=== PATIENT | male | born 1990 | race African-American/Black ===

== ENCOUNTER 2019-12-16 14:43 | Emergency (ER) | payer MEDICAID ==
[~2019-12-16] VITALS: Ht 182.9 cm; Wt 88.0 kg
[2019-12-16 15:49] LABS: BASOPHILS % (AUTO) 0.9 % (0.0-2.0); EOSINOPHILS % (AUTO) 6.3 % (0.0-6.0); HEMATOCRIT 37 % (39-51); HEMOGLOBIN 12.5 g/dL (13.5-17.5); LYMPHOCYTES # (AUTO) 1.4 /CMM (0.8-4.8); LYMPHOCYTES % (AUTO) 36.6 % (20.0-44.0); MEAN CORPUSCULAR HGB CONC 34 g/dl (31.0-36.0); MEAN CORPUSCULAR VOLUME 92 fL (80-96); MONOCYTES # (AUTO) 0.3 /CMM (0.1-1.30); MONOCYTES % (AUTO) 8.6 % (2.0-12.0); NEUTROPHILS # (AUTO) 1.8 /CMM (1.8-8.9); NEUTROPHILS % (AUTO) 47.6 % (43.0-81.0); PLATELET COUNT (AUTO) 140 /CMM (150-450); RED BLOOD CELL COUNT(AUTO) 4.03 MIL/uL (4.5-6.0); WHITE BLOOD COUNT (AUTO) 3.9 K/uL (4.3-11.0)
[2019-12-16 15:57] LABS: CALCIUM, SERUM 8.9 mg/dL (8.5-10.1); CARBON DIOXIDE 27 mmol/L (21-32); CHLORIDE 107 mmol/L (98-107); CREATININE 1.2 mg/dL (0.6-1.3); GLUCOSE 111 mg/dL (74-106); POTASSIUM 3.8 mmol/L (3.5-5.1); SODIUM SERUM 143 mmol/L (136-145); UREA NITROGEN, BLOOD 17 mg/dL (7-18)
[2019-12-16 16:07] LABS: ALANINE AMINOTRANSFERASE 47 U/L (12-78); ALBUMIN 3.7 g/dL (3.4-5.0); ALCOHOL, BLOOD < 3 mg/dL (0-0); ALKALINE PHOSPHATASE 51 U/L (46-116); ASPARTATE AMINOTRANSFERASE 177 U/L (15-37); BILIRUBIN,DIRECT 0.1 mg/dL (0.0-0.2); BILIRUBIN,TOTAL 0.6 mg/dL (0.2-1.0)
[2019-12-16 16:10] LABS: ACETAMINOPHEN 0 ug/ml (10-30); SALICYLATE 2.2 mg/dL (2.8-20.0)
[2019-12-16 18:00] LABS: APPEARANCE,URINE Clear (CLEAR); BILIRUBIN,URINE Negative (NEGATIVE); BLOOD, URINE Negative Ery/uL (NEGATIVE); COLOR,URINE Yellow (YELLOW); KETONES,URINE Negative (NEGATIVE); LEUKOCYTE ESTERASE ,URINE Negative (NEGATIVE); NITRITE, URINE Negative (NEGATIVE); PH,URINE 5.5 (5.0-8.0); PROTEIN,URINE Negative (NEGATIVE); UGLUCOSE Negative (NEGATIVE); UROBILINOGEN,URINE 0.2 EU/dL (0.2)
--- NOTE | 2019-12-16 19:30 | NUR ---
ASSUMED CARE FOR PATIENT AT THIS TIME. PT CAME IN TO ER C/O SI AND FEELING DEPRESSED. PT PLACED IN ER BED 15, BELONGINGS COLLECTED AND PLACED IN GOWN. CLINICAL PACKET FAXED TO [facility]. CALLED [facility], PACKET STILL BEING REVIEWED. THEY WILL CALL BACK WITH ANY UPDATE. PT IS AAOX4, CALM AND COOPERATIVE. RESPIRATIONS EVEN AND UNLABORED. SKIN INTACT. NO ACUTE DISTRESS NOTED AT THIS TIME. SITTER AT BEDSIDE. WILL CONTINUE TO MONITOR.
--- NOTE | 2019-12-16 21:55 | NUR ---
accepted at [facility] number for report accepting md dr Parham Addendum: 12/16/19 at 2223 by REBEKAH PT ACCEPTED TO [facility]
--- NOTE | 2019-12-16 22:14 | NUR ---
CALLED [facility] FOR TRANSPORTATION. RESERVATION #[id number]. PENDING ETA
--- NOTE | 2019-12-16 23:08 | NUR ---
[facility] ETA 0046
--- NOTE | 2019-12-16 23:53 | NUR ---
ATTEMPTED TO GIVE REPORT TO [facility]. NO ANSWER. WILL FOLLOW UP
[2019-12-17 01:22] VITALS: BP 118/79
--- NOTE | 2019-12-17 01:24 | NUR ---
REPORT GIVEN TO SHAWANDA FROM [facility] FOR LAURYN
--- NOTE | 2019-12-17 01:25 | NUR ---
REPORT GIVEN TO [facility] FOR TRANSPORTATION LAURYN
== END 2019-12-17 01:25 | disposition short-term general hospital (02) ==
LOC: ER 14:49
DX: R45.851 Suicidal ideations (principal); F32.9 Major depressive disorder, single episode, unspecified; F41.9 Anxiety disorder, unspecified; F17.200 Nicotine dependence, unspecified, uncomplicated; Z59.0 Homelessness
CPT/HCPCS: 36415; 80048; 80076; 80305; 80307; 80329; 81001; 85025; 99285; G0480; 81000-TC

== ENCOUNTER 2020-06-05 01:22 | Emergency (ER) | payer MEDICAID ==
[~2020-06-05] VITALS: Ht 177.8 cm; Wt 74.8 kg
[2020-06-05 01:22] VITALS: BP 124/75
[2020-06-05] MEDS ORDERED: OLANZAPINE 5 MG/TAB.RAPDIS PO ONE ×2 (01:30)
--- NOTE | 2020-06-05 01:32 | NUR ---
PATIENT CAME TO ER BED 13 C/O AUDITORY HALLUCINATIONS. PATIENT STATES THAT THE VOICES DON'T MAKE ANY SENSE. PATIENT DENIES SI/HI. PATIENT STATES THAT HE WANTS THE VOICE TO STOP. AAOX4. NO SOB. BREATHING EVENLY AND UNLABORED ON ROOM AIR. CONNECTED TO MONITOR. CLOTHING AND BELONGING ARE REMOVED AND PLACED INTO A LOCKED LOCKER. PATIENT IS CHANGED INTO A GOWN.
[2020-06-05] MEDS ORDERED: OLANZAPINE 5 MG TABLET ONE (01:34)
--- NOTE | 2020-06-05 01:36 | NUR ---
SANFORIZING MACHINE OPERATOR AT BEDSIDE FOR BLOOD DRAW.
--- NOTE | 2020-06-05 01:55 | NUR ---
URINE COLLECTED AND SENT TO LAB.
[2020-06-05 02:02] LABS: BASOPHILS # (AUTO) 0.1 /CMM (0.0-0.2); BASOPHILS % (AUTO) 1.3 % (0.0-2.0); EOSINOPHILS % (AUTO) 8.8 % (0.0-6.0); HEMATOCRIT 38 % (39-51); HEMOGLOBIN 12.7 g/dL (13.5-17.5); LYMPHOCYTES # (AUTO) 2.1 /CMM (0.8-4.8); LYMPHOCYTES % (AUTO) 40.4 % (20.0-44.0); MEAN CORPUSCULAR HGB CONC 33 g/dl (31.0-36.0); MEAN CORPUSCULAR VOLUME 91 fL (80-96); MONOCYTES # (AUTO) 0.4 /CMM (0.1-1.30); MONOCYTES % (AUTO) 8.7 % (2.0-12.0); NEUTROPHILS # (AUTO) 2.1 /CMM (1.8-8.9); NEUTROPHILS % (AUTO) 40.8 % (43.0-81.0); PLATELET COUNT (AUTO) 183 /CMM (150-450); RED BLOOD CELL COUNT(AUTO) 4.19 MIL/uL (4.5-6.0); WHITE BLOOD COUNT (AUTO) 5.1 K/uL (4.3-11.0)
[2020-06-05 02:10] LABS: APPEARANCE,URINE CLEAR (CLEAR); BILIRUBIN,URINE NEGATIVE (NEGATIVE); BLOOD, URINE NEGATIVE Ery/uL (NEGATIVE); COLOR,URINE YELLOW (YELLOW); KETONES,URINE NEGATIVE (NEGATIVE); LEUKOCYTE ESTERASE ,URINE NEGATIVE (NEGATIVE); NITRITE, URINE NEGATIVE (NEGATIVE); PROTEIN,URINE NEGATIVE (NEGATIVE); UGLUCOSE NEGATIVE (NEGATIVE); UROBILINOGEN,URINE 0.2 EU/dL (0.2)
[2020-06-05 02:14] LABS: BILIRUBIN,DIRECT 0.1 mg/dL (0.0-0.2); BILIRUBIN,TOTAL 0.2 mg/dL (0.2-1.0); CALCIUM, SERUM 8.9 mg/dL (8.5-10.1); CREATININE 1.3 mg/dL (0.6-1.3); POTASSIUM 3.8 mmol/L (3.5-5.1); TOTAL PROTEIN, SERUM 7.8 g/dL (6.4-8.2)
--- NOTE | 2020-06-05 06:23 | NUR ---
PATIENT RETURNED BELONGINGS AND PROVIDED WITH FOOD.
--- NOTE | 2020-06-05 06:33 | NUR ---
Patient discharged to home in stable condition. Written and verbal after care instructions given. Patient verbalizes understanding of instruction.
== END 2020-06-05 06:45 | disposition home or self-care (01) ==
LOC: ER 01:23
DX: F29 Unspecified psychosis not due to a substance or known physiological condition (principal); F32.9 Major depressive disorder, single episode, unspecified; F41.9 Anxiety disorder, unspecified
CPT/HCPCS: 36415; 80048; 80076; 80305; 80307; 80329; 81001; 85025; 99284; G0480; 81000-TC

== ENCOUNTER 2020-10-29 21:08 | Emergency (ER) | payer MEDICAID ==
[~2020-10-29] VITALS: Ht 185.4 cm; Wt 79.4 kg
--- NOTE | 2020-10-29 21:59 | NUR ---
URINE COLLECTED AND SENT TO LAB
--- NOTE | 2020-10-29 22:25 | NUR ---
lab with pt for blood draw.
[2020-10-29 22:42] LABS: BASOPHILS # (AUTO) 0.1 /CMM (0.0-0.2); BASOPHILS % (AUTO) 0.9 % (0.0-2.0); EOSINOPHILS % (AUTO) 4.7 % (0.0-6.0); HEMATOCRIT 43 % (39-51); HEMOGLOBIN 14.8 g/dL (13.5-17.5); LYMPHOCYTES # (AUTO) 2.4 /CMM (0.8-4.8); LYMPHOCYTES % (AUTO) 41.2 % (20.0-44.0); MEAN CORPUSCULAR HGB CONC 34 g/dl (31.0-36.0); MEAN CORPUSCULAR VOLUME 92 fL (80-96); MONOCYTES # (AUTO) 0.5 /CMM (0.1-1.30); MONOCYTES % (AUTO) 8.1 % (2.0-12.0); NEUTROPHILS # (AUTO) 2.6 /CMM (1.8-8.9); NEUTROPHILS % (AUTO) 45.1 % (43.0-81.0); PLATELET COUNT (AUTO) 193 /CMM (150-450); RED BLOOD CELL COUNT(AUTO) 4.69 MIL/uL (4.5-6.0); WHITE BLOOD COUNT (AUTO) 5.8 K/uL (4.3-11.0)
[2020-10-29 22:44] LABS: BILIRUBIN,URINE NEGATIVE (NEGATIVE); COLOR,URINE YELLOW (YELLOW); LEUKOCYTE ESTERASE ,URINE NEGATIVE (NEGATIVE); NITRITE, URINE NEGATIVE (NEGATIVE); PROTEIN,URINE NEGATIVE (NEGATIVE); UGLUCOSE NEGATIVE (NEGATIVE); UROBILINOGEN,URINE 0.2 EU/dL (0.2)
[2020-10-29 22:54] LABS: CALCIUM, SERUM 9.7 mg/dL (8.5-10.1); CARBON DIOXIDE 31 mmol/L (21-32); CHLORIDE 103 mmol/L (98-107); CREATININE 1.6 mg/dL (0.6-1.3); GLUCOSE 96 mg/dL (74-106); POTASSIUM 4.6 mmol/L (3.5-5.1); SODIUM SERUM 140 mmol/L (136-145); UREA NITROGEN, BLOOD 26 mg/dL (7-18)
[2020-10-29 23:02] LABS: ALANINE AMINOTRANSFERASE 16 U/L (12-78); ALBUMIN 4.4 g/dL (3.4-5.0); ALCOHOL, BLOOD < 3 mg/dL (0-0); ALKALINE PHOSPHATASE 63 U/L (46-116); ASPARTATE AMINOTRANSFERASE 32 U/L (15-37); BILIRUBIN,DIRECT 0.1 mg/dL (0.0-0.2); BILIRUBIN,TOTAL 0.5 mg/dL (0.2-1.0); TOTAL PROTEIN, SERUM 8.5 g/dL (6.4-8.2)
[2020-10-29 23:05] LABS: ACETAMINOPHEN 0 ug/ml (10-30)
--- NOTE | 2020-10-30 02:39 | NUR ---
TRANSFER INFORMATION:PT ACCEPTED TO [facility] ACCEPTING MD: DR. LEE NUMBER FOR REPORT: [phone] UNIT 2
--- NOTE | 2020-10-30 02:43 | NUR ---
CALLED [facility] FOR TRANSPORTATION. RESERVATION [id number], WILL CALL BACK WITH JASSI
--- NOTE | 2020-10-30 02:47 | NUR ---
REPORT GIVEN TO KATIANA FOUNTAIN FOR LAURYN [facility]
--- NOTE | 2020-10-30 03:35 | NUR ---
Minna carmona in [facility] - 10/30/20 at 0335 by CARLOZ ETA 30MINS
--- NOTE | 2020-10-30 03:35 | NUR ---
ETA 30MINS
[2020-10-30 04:22] VITALS: BP 138/79
== END 2020-10-30 04:23 | disposition short-term general hospital (02) ==
LOC: ER 21:10
DX: R45.850 Homicidal ideations (principal); F20.9 Schizophrenia, unspecified; Z20.822 Contact with and (suspected) exposure to COVID-19; N17.9 Acute kidney failure, unspecified
CPT/HCPCS: 36415; 80048; 80076; 80299; 80307; 80320; 81003; 85025; 87426; 99285; C9803; G0480

== ENCOUNTER 2020-11-12 21:12 | Emergency (ER) | payer MEDICAID ==
[~2020-11-12] VITALS: Ht 185.4 cm; Wt 79.4 kg
--- NOTE | 2020-11-12 21:37 | NUR ---
ADMINISTRATIVE RESIDENT DRAWING BLOOD FROM PATIENT.
--- NOTE | 2020-11-12 21:39 | NUR ---
URINE COLLECTED AND SENT TO THE LAB.
--- NOTE | 2020-11-12 21:47 | NUR ---
VALERIE AQUINO AT BEDSIDE.
[2020-11-12 21:56] LABS: BASOPHILS # (AUTO) 0.1 /CMM (0.0-0.2); BASOPHILS % (AUTO) 1.3 % (0.0-2.0); EOSINOPHILS % (AUTO) 4.8 % (0.0-6.0); HEMATOCRIT 40 % (39-51); LYMPHOCYTES # (AUTO) 2.1 /CMM (0.8-4.8); LYMPHOCYTES % (AUTO) 35.8 % (20.0-44.0); MEAN CORPUSCULAR HGB CONC 35 g/dl (31.0-36.0); MEAN CORPUSCULAR VOLUME 93 fL (80-96); MONOCYTES # (AUTO) 0.4 /CMM (0.1-1.30); MONOCYTES % (AUTO) 6.2 % (2.0-12.0); NEUTROPHILS # (AUTO) 3.1 /CMM (1.8-8.9); NEUTROPHILS % (AUTO) 51.9 % (43.0-81.0); PLATELET COUNT (AUTO) 184 /CMM (150-450); RED BLOOD CELL COUNT(AUTO) 4.34 MIL/uL (4.5-6.0); WHITE BLOOD COUNT (AUTO) 5.9 K/uL (4.3-11.0)
[2020-11-12 22:29] LABS: ALANINE AMINOTRANSFERASE 16 U/L (12-78); ALBUMIN 4.1 g/dL (3.4-5.0); ALCOHOL, BLOOD 11 mg/dL (0-0); ALKALINE PHOSPHATASE 56 U/L (46-116); ASPARTATE AMINOTRANSFERASE 30 U/L (15-37); BILIRUBIN,DIRECT 0.1 mg/dL (0.0-0.2); BILIRUBIN,TOTAL 0.3 mg/dL (0.2-1.0); CALCIUM, SERUM 9.3 mg/dL (8.5-10.1); CARBON DIOXIDE 31 mmol/L (21-32); CHLORIDE 106 mmol/L (98-107); CREATININE 1.2 mg/dL (0.6-1.3); GLUCOSE 90 mg/dL (74-106); POTASSIUM 4.2 mmol/L (3.5-5.1); SODIUM SERUM 144 mmol/L (136-145); UREA NITROGEN, BLOOD 16 mg/dL (7-18)
[2020-11-12 22:30] LABS: ACETAMINOPHEN < 10 ug/ml (10-30)
[2020-11-12 22:36] LABS: BILIRUBIN,URINE NEGATIVE (NEGATIVE); COLOR,URINE YELLOW (YELLOW); LEUKOCYTE ESTERASE ,URINE NEGATIVE (NEGATIVE); NITRITE, URINE NEGATIVE (NEGATIVE); PH,URINE 7.5 (5.0-8.0); PROTEIN,URINE NEGATIVE (NEGATIVE); UGLUCOSE NEGATIVE (NEGATIVE); UROBILINOGEN,URINE 0.2 EU/dL (0.2)
--- NOTE | 2020-11-12 22:39 | NUR ---
COVID SWAB COLLECTED AND SENT TO THE LAB
--- NOTE | 2020-11-12 23:21 | NUR ---
FACESHEET AND CLINICAL FAXED TO [facility] FOR VOLUNTARY ADMISSION.
--- NOTE | 2020-11-13 00:11 | NUR ---
covid negative per lab
--- NOTE | 2020-11-13 00:15 | NUR ---
covid results faxed to [facility]
--- NOTE | 2020-11-13 00:42 | NUR ---
called [facility]. [facility] #[id number] eta transport 1-3 hrs.
--- NOTE | 2020-11-13 00:50 | NUR ---
TRANSFER INFO: [facility] ACCEPTING MD BELCHER/SHONDA PHONE # FOR REPORT
--- NOTE | 2020-11-13 00:53 | NUR ---
REPORT GIVEN TO KATIANA FOUNTAIN FOR [facility]
--- NOTE | 2020-11-13 04:55 | NUR ---
CALLED [facility], SPOKE TO PAT FOR F/U ETA FOR TRANSPORT[phone] WILL CALL BACK FOR ETA.
--- NOTE | 2020-11-13 05:37 | NUR ---
SPOKE TO DEVON FROM [facility] FOR UPDATE, STILL LOOKING FOR TRANSPORT.
--- NOTE | 2020-11-13 05:40 | NUR ---
SPOKE TO LUCIA FROM [facility] FOR ETA. STILL LOOKING FOR TRANSPORT
--- NOTE | 2020-11-13 05:41 | NUR ---
CALLED [facility] [phone]; SPOKE TO ASIF KEENE [phone].
--- NOTE | 2020-11-13 07:41 | NUR ---
REPORT GIVEN TO [facility]. PT AWARE OF TRANSPORT. PT WITH ALL PERSONAL BELONGINGS. PER [facility] TOOK OVER CARE, PT PLACED ON GURNEY, PT TO BE TRANSFERRED TO [facility]. PT VSS.
[2020-11-13 07:43] VITALS: BP 132/78
== END 2020-11-13 07:46 ==
LOC: ER 21:12
DX: F20.9 Schizophrenia, unspecified (principal); F41.9 Anxiety disorder, unspecified; Z91.14 Patient's other noncompliance with medication regimen; Z20.822 Contact with and (suspected) exposure to COVID-19
CPT/HCPCS: 36415; 80048; 80076; 80299; 80307; 80320; 81003; 85025; 87426; 99285; C9803; G0480

== ENCOUNTER 2020-11-20 01:07 | Emergency (ER) | payer MEDICAID ==
[~2020-11-20] VITALS: Ht 182.9 cm; Wt 79.4 kg
--- NOTE | 2020-11-20 01:30 | NUR ---
SAMARIA C/O FEELING DEPRESSED, -SI/-HI. REQUEST TO GO TO [facility]. pt aox4 rr even and unlabored. no sob noted. no acute distress noted. pt aware of plan of care. pt calm and cooperative. dr. lai with pt for eval.
--- NOTE | 2020-11-20 01:34 | NUR ---
URINE COLLECTED. SENT TO LAB
--- NOTE | 2020-11-20 01:40 | NUR ---
lab with pt for blood draw
[2020-11-20 01:49] LABS: BASOPHILS % (AUTO) 0.6 % (0.0-2.0); EOSINOPHILS % (AUTO) 5.5 % (0.0-6.0); HEMATOCRIT 38 % (39-51); HEMOGLOBIN 13.2 g/dL (13.5-17.5); LYMPHOCYTES # (AUTO) 1.7 /CMM (0.8-4.8); LYMPHOCYTES % (AUTO) 36.4 % (20.0-44.0); MEAN CORPUSCULAR HGB CONC 34 g/dl (31.0-36.0); MEAN CORPUSCULAR VOLUME 92 fL (80-96); MONOCYTES # (AUTO) 0.4 /CMM (0.1-1.30); MONOCYTES % (AUTO) 8.4 % (2.0-12.0); NEUTROPHILS # (AUTO) 2.3 /CMM (1.8-8.9); NEUTROPHILS % (AUTO) 49.1 % (43.0-81.0); PLATELET COUNT (AUTO) 180 /CMM (150-450); RED BLOOD CELL COUNT(AUTO) 4.15 MIL/uL (4.5-6.0); WHITE BLOOD COUNT (AUTO) 4.7 K/uL (4.3-11.0)
[2020-11-20 01:55] LABS: BILIRUBIN,URINE NEGATIVE (NEGATIVE); COLOR,URINE YELLOW (YELLOW); LEUKOCYTE ESTERASE ,URINE NEGATIVE (NEGATIVE); NITRITE, URINE NEGATIVE (NEGATIVE); PROTEIN,URINE NEGATIVE (NEGATIVE); UGLUCOSE NEGATIVE (NEGATIVE); UROBILINOGEN,URINE 0.2 EU/dL (0.2)
[2020-11-20 02:03] LABS: CALCIUM, SERUM 9.2 mg/dL (8.5-10.1); CARBON DIOXIDE 31 mmol/L (21-32); CHLORIDE 106 mmol/L (98-107); CREATININE 1.3 mg/dL (0.6-1.3); GLUCOSE 82 mg/dL (74-106); POTASSIUM 4.4 mmol/L (3.5-5.1); SODIUM SERUM 144 mmol/L (136-145); UREA NITROGEN, BLOOD 12 mg/dL (7-18)
[2020-11-20 02:07] LABS: ALANINE AMINOTRANSFERASE 19 U/L (12-78); ALBUMIN 3.9 g/dL (3.4-5.0); ALCOHOL, BLOOD 32 mg/dL (0-0); ALKALINE PHOSPHATASE 68 U/L (46-116); ASPARTATE AMINOTRANSFERASE 36 U/L (15-37); BILIRUBIN,DIRECT 0.1 mg/dL (0.0-0.2); BILIRUBIN,TOTAL 0.2 mg/dL (0.2-1.0); TOTAL PROTEIN, SERUM 7.5 g/dL (6.4-8.2)
[2020-11-20 02:12] LABS: ACETAMINOPHEN < 2 ug/ml (10-30)
[2020-11-20 02:15] LABS: THYROID STIMULATING HORMONE 3.404 uIU/mL (0.358-3.74)
--- NOTE | 2020-11-20 03:55 | NUR ---
CLINICAL INFORMATION FAXED TO [facility]
--- NOTE | 2020-11-20 04:34 | NUR ---
Pt accepted to [facility] by Dr Smith. # for report. [phone]
--- NOTE | 2020-11-20 04:43 | NUR ---
[facility] transportation called for transport. #[id number]
--- NOTE | 2020-11-20 04:59 | NUR ---
Report given to Richard SAAB for continuation of care.
--- NOTE | 2020-11-20 05:50 | NUR ---
[facility] ETA [id number]
[2020-11-20 05:53] VITALS: BP 112/72
--- NOTE | 2020-11-20 07:31 | NUR ---
report given to KATIANA Blackmon.
--- NOTE | 2020-11-20 07:44 | NUR ---
[facility] ambulance at bedside for transport to [facility].
== END 2020-11-20 07:46 ==
LOC: ER 01:09
DX: F29 Unspecified psychosis not due to a substance or known physiological condition (principal); F20.9 Schizophrenia, unspecified; Z79.899 Other long term (current) drug therapy; F17.210 Nicotine dependence, cigarettes, uncomplicated; Z20.822 Contact with and (suspected) exposure to COVID-19; Z59.0 Homelessness
CPT/HCPCS: 36415; 80048; 80076; 80299; 80307; 80320; 81003; 84443; 85025; 87426; 99285; C9803; G0480

== ENCOUNTER 2020-12-19 00:06 | Emergency (ER) | payer MEDICAID, OTHER ==
[~2020-12-19] VITALS: Ht 182.9 cm; Wt 79.4 kg
--- NOTE | 2020-12-19 00:10 | NUR ---
TO ER BED C/O DEPRESSION "I'M FEELING A HAGEN OF EMOTIONS". SI WITHOUT SPECIFIC PLAN. DENIES HI. REQUESTING VOLUNTARY PSYCH ADMISSION TO [facility]. PT AAOX4 NO ACUTE DISTRESS NOTED, RESP EVEN AND UNLABORED. PT CALM AND COOPERATIVE AT THIS TIME. PLACE PT ON HOSPITAL GOWN, ALL BELONGINGS REMOVED. 1:1 SITTER AT BEDSIDE. ER MD AT [facility] TO EVAL PT WITH ORDERS RECEIVED. WILL CARRY OUT ORDERS.
--- NOTE | 2020-12-19 00:30 | NUR ---
URINE SAMPLE COLLECTED AND SENT TO LAB.
--- NOTE | 2020-12-19 00:51 | NUR ---
MEDICAL TRANSCRIPTION RADIOLOGY AT BEDSIDE FOR BLOOD DRAW.
[2020-12-19 01:27] LABS: BASOPHILS # (AUTO) 0.1 /CMM (0.0-0.2); BASOPHILS % (AUTO) 0.8 % (0.0-2.0); EOSINOPHILS % (AUTO) 2.4 % (0.0-6.0); HEMATOCRIT 41 % (39-51); HEMOGLOBIN 13.7 g/dL (13.5-17.5); LYMPHOCYTES # (AUTO) 1.7 /CMM (0.8-4.8); LYMPHOCYTES % (AUTO) 21.5 % (20.0-44.0); MEAN CORPUSCULAR HGB CONC 34 g/dl (31.0-36.0); MEAN CORPUSCULAR VOLUME 93 fL (80-96); MONOCYTES # (AUTO) 0.5 /CMM (0.1-1.30); MONOCYTES % (AUTO) 6.4 % (2.0-12.0); NEUTROPHILS # (AUTO) 5.5 /CMM (1.8-8.9); NEUTROPHILS % (AUTO) 68.9 % (43.0-81.0); PLATELET COUNT (AUTO) 239 /CMM (150-450); RED BLOOD CELL COUNT(AUTO) 4.36 MIL/uL (4.5-6.0)
[2020-12-19 01:29] LABS: BILIRUBIN,URINE NEGATIVE (NEGATIVE); COLOR,URINE YELLOW (YELLOW); LEUKOCYTE ESTERASE ,URINE NEGATIVE (NEGATIVE); NITRITE, URINE NEGATIVE (NEGATIVE); PH,URINE 6.5 (5.0-8.0); PROTEIN,URINE NEGATIVE (NEGATIVE); UGLUCOSE NEGATIVE (NEGATIVE)
[2020-12-19 01:32] LABS: BACTERIA,URINE None seen /HPF (None Seen); RBC,URINE 0-2 /HPF (0-2); SQUAMOUS EPITHELIAL CELL,UR Few /HPF (None Seen); WBC,URINE 0-2 /HPF (0-3)
[2020-12-19 01:33] LABS: ALANINE AMINOTRANSFERASE 16 U/L (12-78); ALBUMIN 3.9 g/dL (3.4-5.0); ALCOHOL, BLOOD < 3 mg/dL (0-0); ALKALINE PHOSPHATASE 72 U/L (46-116); ASPARTATE AMINOTRANSFERASE 35 U/L (15-37); BILIRUBIN,DIRECT 0.1 mg/dL (0.0-0.2); BILIRUBIN,TOTAL 0.4 mg/dL (0.2-1.0); CALCIUM, SERUM 9.2 mg/dL (8.5-10.1); CARBON DIOXIDE 29 mmol/L (21-32); CHLORIDE 103 mmol/L (98-107); CREATININE 1.4 mg/dL (0.6-1.3); GLUCOSE 89 mg/dL (74-106); POTASSIUM 4.4 mmol/L (3.5-5.1); SODIUM SERUM 139 mmol/L (136-145); TOTAL PROTEIN, SERUM 8.2 g/dL (6.4-8.2); UREA NITROGEN, BLOOD 21 mg/dL (7-18)
[2020-12-19 01:57] LABS: ACETAMINOPHEN 0 ug/ml (10-30)
--- NOTE | 2020-12-19 02:04 | NUR ---
CLINICAL AND FACESHEET FAXED TO [facility] FOR VOLUNTARY PSYCH ADMISSION.
--- NOTE | 2020-12-19 03:15 | NUR ---
TRANSFER INFO: PT ACCEPTED AT [facility] ACCEPTING MD LEE PT WILL GO TO UNIT 2 PHONE # FOR REPORT
--- NOTE | 2020-12-19 03:41 | NUR ---
[facility] CALLED FOR TRANSPORT. TRIP #[id number].
--- NOTE | 2020-12-19 04:00 | NUR ---
Call back from [facility]. [facility]ulance eta [phone]
--- NOTE | 2020-12-19 06:47 | NUR ---
REPORT GIVEN TO LAVELLE RAYO. AWAITING TRANSPORT. PT ASLEEP, EASILY AROUSABLE, NO ACUTE DISTRESS NOTED, RESP EVEN AND UNLABORED. CALL [facility] REACH. WILL CONTINUE TO MONITOR PT CLOSELY.
[2020-12-19 08:02] VITALS: BP 134/82
--- NOTE | 2020-12-19 08:02 | NUR ---
Transfer Information: Transfer to: [place] [facility] Report To: EMT [facility] #[id number] Condition: Stable, AAOx3. GCS-15. Aware and concurs w/transfer
== END 2020-12-19 08:46 ==
LOC: ER 00:09
DX: F32.9 Major depressive disorder, single episode, unspecified (principal); R45.851 Suicidal ideations; F20.9 Schizophrenia, unspecified; Z20.822 Contact with and (suspected) exposure to COVID-19
CPT/HCPCS: 36415; 80048; 80076; 80299; 80307; 80320; 81001; 85025; 87426; 99285; C9803; G0480

== ENCOUNTER 2020-12-28 23:22 | Emergency (ER) | payer OTHER ==
[~2020-12-28] VITALS: Ht 188 cm; Wt 79.4 kg
--- NOTE | 2020-12-28 23:32 | NUR ---
[facility] FOR C/O DEPRESSION, SI AND PLANNING TO CUT HIS WRIST. PT ALERT, OX4, CALM AND COOPERATIVE. AMBULATORY TO THE BATHROOM WITH STEADY GAITS, ABLE TO PROVIDE URINE SAMPLE. ON MONITOR WITH STABLE VS. PT REMAINED ON SI PRECAUTION. WILL CONT TO MONITOR.
--- NOTE | 2020-12-28 23:48 | NUR ---
urine sent to lab.
[2020-12-28 23:55] LABS: BASOPHILS % (AUTO) 0.5 % (0.0-2.0); EOSINOPHILS % (AUTO) 2.2 % (0.0-6.0); HEMATOCRIT 39 % (39-51); HEMOGLOBIN 13.3 g/dL (13.5-17.5); LYMPHOCYTES # (AUTO) 1.9 /CMM (0.8-4.8); LYMPHOCYTES % (AUTO) 26.9 % (20.0-44.0); MEAN CORPUSCULAR HGB CONC 34 g/dl (31.0-36.0); MEAN CORPUSCULAR VOLUME 93 fL (80-96); MONOCYTES # (AUTO) 0.5 /CMM (0.1-1.30); MONOCYTES % (AUTO) 7.8 % (2.0-12.0); NEUTROPHILS # (AUTO) 4.4 /CMM (1.8-8.9); NEUTROPHILS % (AUTO) 62.6 % (43.0-81.0); PLATELET COUNT (AUTO) 239 /CMM (150-450); RED BLOOD CELL COUNT(AUTO) 4.21 MIL/uL (4.5-6.0)
[2020-12-28 23:56] LABS: BILIRUBIN,URINE NEGATIVE (NEGATIVE); COLOR,URINE YELLOW (YELLOW); LEUKOCYTE ESTERASE ,URINE NEGATIVE (NEGATIVE); NITRITE, URINE NEGATIVE (NEGATIVE); PROTEIN,URINE NEGATIVE (NEGATIVE); UGLUCOSE NEGATIVE (NEGATIVE); UROBILINOGEN,URINE 0.2 EU/dL (0.2)
[2020-12-29 00:04] LABS: CALCIUM, SERUM 9.4 mg/dL (8.5-10.1); CARBON DIOXIDE 33 mmol/L (21-32); CHLORIDE 105 mmol/L (98-107); CREATININE 1.3 mg/dL (0.6-1.3); GLUCOSE 108 mg/dL (74-106); POTASSIUM 4.3 mmol/L (3.5-5.1); SODIUM SERUM 141 mmol/L (136-145); UREA NITROGEN, BLOOD 19 mg/dL (7-18)
[2020-12-29 00:09] LABS: ALANINE AMINOTRANSFERASE 14 U/L (12-78); ALBUMIN 3.8 g/dL (3.4-5.0); ALCOHOL, BLOOD < 3 mg/dL (0-0); ALKALINE PHOSPHATASE 69 U/L (46-116); ASPARTATE AMINOTRANSFERASE 30 U/L (15-37); BILIRUBIN,DIRECT 0.1 mg/dL (0.0-0.2); BILIRUBIN,TOTAL 0.3 mg/dL (0.2-1.0); TOTAL PROTEIN, SERUM 8.3 g/dL (6.4-8.2)
[2020-12-29 00:11] LABS: ACETAMINOPHEN 0 ug/ml (10-30)
--- NOTE | 2020-12-29 01:47 | NUR ---
CLINICAL AND FACESHEET FAXED TO [facility] FOR VOLUNTARY PSYCH ADMISSION.
--- NOTE | 2020-12-29 03:12 | NUR ---
ACCEPTED TO [facility], UNDER PSYCHIATRIST: DR. BONY MCKEON: NICOLE WILL PROVIDE ROOM NUMBER UPON GIVING REPORT. #FOR REPORT: [phone]
--- NOTE | 2020-12-29 06:04 | NUR ---
CALLED [facility] AND SPOKE TO DENAE. TRANSPORTATION ARRANGED FOR [facility] AT 1000 WITH TRIP NUMBER: [id number]
--- NOTE | 2020-12-29 08:19 | NUR ---
# FOR REPORT, , UNIT 2
[2020-12-29 09:50] VITALS: BP 121/70
--- NOTE | 2020-12-29 11:09 | NUR ---
PT NO LONGER AT BEDSIDE. LEFT BEFORE BEING TRANSFER.
== END 2020-12-29 11:14 | disposition left against medical advice (07) ==
LOC: ER 23:24
DX: R45.851 Suicidal ideations (principal); F32.9 Major depressive disorder, single episode, unspecified; Z20.822 Contact with and (suspected) exposure to COVID-19; F20.9 Schizophrenia, unspecified; F41.9 Anxiety disorder, unspecified
CPT/HCPCS: 36415; 80048; 80076; 80299; 80307; 80320; 81003; 85025; 87426; 99285; C9803; G0480

== ENCOUNTER 2020-12-30 23:16 | Emergency (ER) | payer OTHER ==
[~2020-12-30] VITALS: Ht 188 cm; Wt 79.4 kg
--- NOTE | 2020-12-30 23:20 | NUR ---
TO ER BED C/O SI WITH PLAN TO RUN INTO A MOVING CAR. DENIES HI. REQUESTING VOLUNTARY ADMISSION TO [facility]. PT AAOX4 NO ACUTE DISTRESS NOTED, RESP EVEN AND UNLABORED. PT CALM AND COOPERATIVE AT THIS TIME. PLACE PT ON HOSPITAL GOWN, ALL BELONGINGS REMOVED, 1:1 SITTER AT BEDSIDE TO PT SAFETY.
--- NOTE | 2020-12-31 | NUR ---
URINE SAMPLE COLLECTED AND SENT TO LAB.
--- NOTE | 2020-12-31 00:19 | NUR ---
LEISURE TRAVEL AGENT AT BEDSIDE FOR BLOOD DRAW.
[2020-12-31 00:22] LABS: BASOPHILS % (AUTO) 0.6 % (0.0-2.0); EOSINOPHILS % (AUTO) 2.5 % (0.0-6.0); HEMATOCRIT 39 % (39-51); HEMOGLOBIN 13.3 g/dL (13.5-17.5); LYMPHOCYTES # (AUTO) 1.8 /CMM (0.8-4.8); LYMPHOCYTES % (AUTO) 27.8 % (20.0-44.0); MEAN CORPUSCULAR HGB CONC 34 g/dl (31.0-36.0); MEAN CORPUSCULAR VOLUME 93 fL (80-96); MONOCYTES # (AUTO) 0.6 /CMM (0.1-1.30); MONOCYTES % (AUTO) 8.9 % (2.0-12.0); NEUTROPHILS % (AUTO) 60.2 % (43.0-81.0); PLATELET COUNT (AUTO) 237 /CMM (150-450); RED BLOOD CELL COUNT(AUTO) 4.19 MIL/uL (4.5-6.0); WHITE BLOOD COUNT (AUTO) 6.6 K/uL (4.3-11.0)
[2020-12-31 00:52] LABS: ALBUMIN 3.7 g/dL (3.4-5.0); BILIRUBIN,DIRECT 0.1 mg/dL (0.0-0.2); BILIRUBIN,TOTAL 0.3 mg/dL (0.2-1.0); CALCIUM, SERUM 9.3 mg/dL (8.5-10.1); CREATININE 1.3 mg/dL (0.6-1.3); POTASSIUM 4.4 mmol/L (3.5-5.1); TOTAL PROTEIN, SERUM 8.2 g/dL (6.4-8.2)
[2020-12-31 01:01] LABS: BILIRUBIN,URINE NEGATIVE (NEGATIVE); COLOR,URINE YELLOW (YELLOW); LEUKOCYTE ESTERASE ,URINE NEGATIVE (NEGATIVE); NITRITE, URINE NEGATIVE (NEGATIVE); PH,URINE 6.5 (5.0-8.0); PROTEIN,URINE NEGATIVE (NEGATIVE); UGLUCOSE NEGATIVE (NEGATIVE); UROBILINOGEN,URINE 0.2 EU/dL (0.2)
--- NOTE | 2020-12-31 01:37 | NUR ---
negative covid result
--- NOTE | 2020-12-31 01:40 | NUR ---
Facesheet and clinicals faxed to [facility].
--- NOTE | 2020-12-31 02:14 | NUR ---
TRANSFER INFORMATION: PT WILL BE TRANSFERRED TO [facility] ACCEPTING MD: DR. LEE NUMBER FOR REPORT: [phone] UNIT 2
--- NOTE | 2020-12-31 03:00 | NUR ---
[place] [id number]. PER JOHANNA FROM [facility].
--- NOTE | 2020-12-31 03:27 | NUR ---
[facility] CALLED REGARDING KAMERON KEENE [phone].
[2020-12-31 04:02] VITALS: BP 126/76
--- NOTE | 2020-12-31 04:03 | NUR ---
REPORT GIVEN TO LAVELLE HARRY. AWAITING TRANSPORT.
--- NOTE | 2020-12-31 04:43 | NUR ---
TRANSPORT AT BEDSIDE REPORT GIVEN TO EMT
== END 2020-12-31 04:44 ==
LOC: ER 23:18
DX: R45.851 Suicidal ideations (principal); Z20.822 Contact with and (suspected) exposure to COVID-19; F20.9 Schizophrenia, unspecified; Z59.0 Homelessness; F32.9 Major depressive disorder, single episode, unspecified; F41.9 Anxiety disorder, unspecified
CPT/HCPCS: 36415; 80048; 80076; 80299; 80307; 80320; 81003; 85025; 87426; 99285; C9803; G0480

== ENCOUNTER 2021-01-03 00:36 | Emergency (ER) | payer OTHER | END 2021-01-03 02:32 | disposition left against medical advice (07) | LOC: ER 00:43 | DX: Z53.21 Procedure and treatment not carried out due to patient leaving prior to being seen by health care provider (principal) ==

== ENCOUNTER 2021-01-10 22:35 | Emergency (ER) | payer OTHER ==
[~2021-01-10] VITALS: Ht 188 cm; Wt 77.6 kg
--- NOTE | 2021-01-10 22:40 | NUR ---
PT BIBSELF C/O SUICIDAL IDEATION WITH PLAN TO RUN INTO TRAFFIC. PT AAOX4, CALM AND COOPERATIVE. VITAL SIGNS STABLE. SKIN WARM AND INTACT. AMBULATORY WITH STEADY GAIT. NO ACUTE DISTRESS NOTED AT THIS TIME. PLACED IN GOWN, BELONGINGS COLLECTED AND LOCKED IN PATIENT LOCKER. SITTER AT BEDSIDE, WILL CONTINUE TO MONITOR
--- NOTE | 2021-01-10 23:57 | NUR ---
BATOOLID SWABBED, SENT TO LAB.
--- NOTE | 2021-01-10 23:57 | NUR ---
URINE COLLECTED, SENT TO LAB.
[2021-01-11 00:06] LABS: HEMOGLOBIN 12.2 g/dL (13.5-17.5); RED BLOOD CELL COUNT(AUTO) 3.92 MIL/uL (4.5-6.0); WHITE BLOOD COUNT (AUTO) 6.1 K/uL (4.3-11.0)
[2021-01-11 00:48] LABS: BASOPHILS % (AUTO) 0.6 % (0.0-2.0); EOSINOPHILS % (AUTO) 3.3 % (0.0-6.0); HEMATOCRIT 36 % (39-51); LYMPHOCYTES # (AUTO) 2.1 /CMM (0.8-4.8); LYMPHOCYTES % (AUTO) 34.9 % (20.0-44.0); MEAN CORPUSCULAR HGB CONC 34 g/dl (31.0-36.0); MEAN CORPUSCULAR VOLUME 92 fL (80-96); MONOCYTES # (AUTO) 0.4 /CMM (0.1-1.30); MONOCYTES % (AUTO) 5.8 % (2.0-12.0); NEUTROPHILS # (AUTO) 3.4 /CMM (1.8-8.9); NEUTROPHILS % (AUTO) 55.4 % (43.0-81.0); PLATELET COUNT (AUTO) 210 /CMM (150-450)
[2021-01-11 02:06] LABS: CALCIUM, SERUM 8.7 mg/dL (8.5-10.1); CARBON DIOXIDE 25 mmol/L (21-32); CHLORIDE 105 mmol/L (98-107); CREATININE 1.3 mg/dL (0.6-1.3); GLUCOSE 106 mg/dL (74-106); POTASSIUM 3.6 mmol/L (3.5-5.1); SODIUM SERUM 141 mmol/L (136-145); UREA NITROGEN, BLOOD 11 mg/dL (7-18)
[2021-01-11 02:11] LABS: ACETAMINOPHEN < 2 ug/ml (10-30); ALANINE AMINOTRANSFERASE 17 U/L (12-78); ALBUMIN 3.3 g/dL (3.4-5.0); ALCOHOL, BLOOD < 3 mg/dL (0-0); ALKALINE PHOSPHATASE 58 U/L (46-116); ASPARTATE AMINOTRANSFERASE 34 U/L (15-37); BILIRUBIN,DIRECT 0.1 mg/dL (0.0-0.2); BILIRUBIN,TOTAL 0.2 mg/dL (0.2-1.0); TOTAL PROTEIN, SERUM 7.4 g/dL (6.4-8.2)
[2021-01-11 02:14] LABS: BILIRUBIN,URINE NEGATIVE (NEGATIVE); COLOR,URINE YELLOW (YELLOW); LEUKOCYTE ESTERASE ,URINE NEGATIVE (NEGATIVE); NITRITE, URINE NEGATIVE (NEGATIVE); PROTEIN,URINE NEGATIVE (NEGATIVE); UGLUCOSE NEGATIVE (NEGATIVE); UROBILINOGEN,URINE 0.2 EU/dL (0.2)
--- NOTE | 2021-01-11 03:06 | NUR ---
PT RESTING COMFORTABLY IN BED. VITAL SIGNS STABLE. SITTER STILL AT BEDSIDE, WILL CONTINUE TO MONITOR
--- NOTE | 2021-01-11 03:34 | NUR ---
SPOKE WITH ART FROM [facility]. PER ART, NO BEDS AVAILABLE AT THIS TIME
--- NOTE | 2021-01-11 05:03 | NUR ---
TRANSFER INFORMATION: PT ACCEPTED TO [facility] ACCEPTING MD: DR. BELCHER NUMBER FOR REPORT: [phone] EXT [phone] UNIT: P[facility] REFERENCE #[phone], WILL CALL BACK WITH ETA
--- NOTE | 2021-01-11 05:16 | NUR ---
REPORT GIVEN TO GOLDEN SAAB FOR LAURYN
--- NOTE | 2021-01-11 05:17 | NUR ---
ETA [id number] [facility]
--- NOTE | 2021-01-11 06:41 | NUR ---
REPORT GIVEN TO [facility] FOR [facility]SPORTATION LAURYN
[2021-01-11 06:42] VITALS: BP 110/68
== END 2021-01-11 06:43 ==
LOC: ER 22:43
DX: R45.851 Suicidal ideations (principal); F20.9 Schizophrenia, unspecified; Z59.0 Homelessness; Z20.822 Contact with and (suspected) exposure to COVID-19
CPT/HCPCS: 36415; 80048; 80076; 80299; 80307; 80320; 81003; 85025; 87426; 99285; C9803; G0480

== ENCOUNTER 2021-01-25 21:20 | Emergency (ER) | payer OTHER ==
[~2021-01-25] VITALS: Ht 180.3 cm; Wt 79.4 kg
--- NOTE | 2021-01-25 21:20 | NUR ---
TO ER BED 12 AMBULATORY C/O SI WITH PLAN TO RUN INTO A MOVING CAR. DENIES HI/ PT AAOX4 NO ACUTE DISTRESS NOTED, RESP EVEN AND UNLABORED. PT CALM AND COOPERATIVE AT THIS TIME. PLACE PT ON HOSPITAL GOWN, ALL BELONGINGS REMOVED AND PLACED IN A LOCKED HOSPITAL LOCKER. 1:1 SITTER AT BESIDE FOR PT SAFETY.
--- NOTE | 2021-01-25 21:30 | NUR ---
URINE SAMPLE COLLECTED AND SENT TO LAB.
[2021-01-25 22:05] LABS: EOSINOPHILS % (AUTO) 4.4 % (0.0-6.0); HEMATOCRIT 37 % (39-51); HEMOGLOBIN 12.5 g/dL (13.5-17.5); LYMPHOCYTES # (AUTO) 1.3 /CMM (0.8-4.8); LYMPHOCYTES % (AUTO) 26.6 % (20.0-44.0); MEAN CORPUSCULAR HGB CONC 34 g/dl (31.0-36.0); MEAN CORPUSCULAR VOLUME 93 fL (80-96); MONOCYTES # (AUTO) 0.4 /CMM (0.1-1.30); MONOCYTES % (AUTO) 7.8 % (2.0-12.0); NEUTROPHILS # (AUTO) 2.9 /CMM (1.8-8.9); NEUTROPHILS % (AUTO) 60.2 % (43.0-81.0); PLATELET COUNT (AUTO) 159 /CMM (150-450); WHITE BLOOD COUNT (AUTO) 4.8 K/uL (4.3-11.0)
[2021-01-25 22:24] LABS: CALCIUM, SERUM 8.9 mg/dL (8.5-10.1); POTASSIUM 3.3 mmol/L (3.5-5.1)
[2021-01-25 22:30] LABS: ALBUMIN 3.6 g/dL (3.4-5.0); BILIRUBIN,DIRECT 0.1 mg/dL (0.0-0.2); BILIRUBIN,TOTAL 0.3 mg/dL (0.2-1.0); TOTAL PROTEIN, SERUM 7.8 g/dL (6.4-8.2)
--- NOTE | 2021-01-25 22:44 | NUR ---
lab called regarding negative covid result.
--- NOTE | 2021-01-25 23:04 | NUR ---
FACESHEET AND CLINICAL FAXED TO [facility] FOR VOLUNTARY ADMISSION.
--- NOTE | 2021-01-26 02:16 | NUR ---
TRANSFER INFORMATION: PT ACCEPTED AT [facility] ACCEPTING MD BELCHER PHONE NUMBER# [phone]
--- NOTE | 2021-01-26 02:25 | NUR ---
[facility] CALLED ETA 75-90 MIN.
[2021-01-26 02:33] VITALS: BP 108/74
--- NOTE | 2021-01-26 02:38 | NUR ---
REPORT GIVEN TO IJ, PT WILL BE GOING TO BED 442-A
--- NOTE | 2021-01-26 04:07 | NUR ---
REPORT GIVEN TO EMT, PT TRANSFERED.
== END 2021-01-26 04:08 ==
LOC: ER 21:20
DX: F99 Mental disorder, not otherwise specified (principal); R45.851 Suicidal ideations; F19.10 Other psychoactive substance abuse, uncomplicated
CPT/HCPCS: 36415; 80048; 80076; 80299; 80307; 80320; 84703; 85025; 87426; 99285; C9803; G0480

== ENCOUNTER 2021-02-14 01:58 | Emergency (ER) | payer OTHER ==
[~2021-02-14] VITALS: Ht 188 cm; Wt 85.3 kg
--- NOTE | 2021-02-14 01:58 | NUR ---
PT TO ER REQUESTING MEDICAL CLEARANCE FOR VOLUNTARY PSYCH TO [facility]. PT STATES SI W/ PLAN TO RUN INTO TRAFFIC. NO IMMEDIATE SIGNS OF DISTRESS NOTED. PT VITAL SIGNS STABLE. PT CALM AND COOPERATIVE. WILL CONT TO MONITOR PT.
[2021-02-14 02:36] LABS: BILIRUBIN,URINE SMALL (NEGATIVE); COLOR,URINE YELLOW (YELLOW); LEUKOCYTE ESTERASE ,URINE NEGATIVE (NEGATIVE); NITRITE, URINE NEGATIVE (NEGATIVE); PH,URINE 5.5 (5.0-8.0); PROTEIN,URINE NEGATIVE (NEGATIVE); UGLUCOSE NEGATIVE (NEGATIVE)
[2021-02-14 02:37] LABS: BASOPHILS % (AUTO) 0.6 % (0.0-2.0); EOSINOPHILS % (AUTO) 4.9 % (0.0-6.0); HEMATOCRIT 36 % (39-51); HEMOGLOBIN 12.4 g/dL (13.5-17.5); LYMPHOCYTES # (AUTO) 1.5 /CMM (0.8-4.8); LYMPHOCYTES % (AUTO) 33.8 % (20.0-44.0); MEAN CORPUSCULAR HGB CONC 34 g/dl (31.0-36.0); MEAN CORPUSCULAR VOLUME 93 fL (80-96); MONOCYTES # (AUTO) 0.5 /CMM (0.1-1.30); MONOCYTES % (AUTO) 10.7 % (2.0-12.0); NEUTROPHILS # (AUTO) 2.2 /CMM (1.8-8.9); PLATELET COUNT (AUTO) 168 /CMM (150-450); RED BLOOD CELL COUNT(AUTO) 3.91 MIL/uL (4.5-6.0); WHITE BLOOD COUNT (AUTO) 4.5 K/uL (4.3-11.0)
[2021-02-14 02:53] LABS: CALCIUM, SERUM 8.9 mg/dL (8.5-10.1); CARBON DIOXIDE 26 mmol/L (21-32); CHLORIDE 106 mmol/L (98-107); CREATININE 1.2 mg/dL (0.6-1.3); GLUCOSE 83 mg/dL (74-106); POTASSIUM 4.2 mmol/L (3.5-5.1); SODIUM SERUM 141 mmol/L (136-145); UREA NITROGEN, BLOOD 13 mg/dL (7-18)
[2021-02-14 02:54] LABS: BACTERIA,URINE None seen /HPF (None Seen); MUCUS,URINE Many /LPF (None Seen); RBC,URINE 0-2 /HPF (0-2); SQUAMOUS EPITHELIAL CELL,UR Few /HPF (None Seen); WBC,URINE 0-2 /HPF (0-3)
[2021-02-14 02:59] LABS: ALANINE AMINOTRANSFERASE 17 U/L (12-78); ALBUMIN 3.8 g/dL (3.4-5.0); ALCOHOL, BLOOD < 3 mg/dL (0-0); ALKALINE PHOSPHATASE 57 U/L (46-116); ASPARTATE AMINOTRANSFERASE 33 U/L (15-37); BILIRUBIN,DIRECT 0.2 mg/dL (0.0-0.2); BILIRUBIN,TOTAL 0.6 mg/dL (0.2-1.0); TOTAL PROTEIN, SERUM 7.9 g/dL (6.4-8.2)
[2021-02-14 03:02] LABS: ACETAMINOPHEN < 2 ug/ml (10-30)
--- NOTE | 2021-02-14 05:10 | NUR ---
CALL FROM LAB. RAPID COVID NEGATIVE.
--- NOTE | 2021-02-14 06:32 | NUR ---
PATIENT IS ACCEPTED TO [facility] UNDER PSYCHIATRIST, DR. LEE, REPORT TO UNIT Addendum: 02/14/21 at 0641 by DEWAYNE REPORT GIVEN TO LAY SAAB AT [facility]
--- NOTE | 2021-02-14 06:56 | NUR ---
[facility] called for transport. Trip#[id number]
--- NOTE | 2021-02-14 07:32 | NUR ---
[facility] 1530 ETA
--- NOTE | 2021-02-14 08:31 | NUR ---
REPORT GIVEN TO KATIANA ROLLE OF [facility] FOR [facility].
--- NOTE | 2021-02-14 10:00 | NUR ---
PT STATED HE IS NOT SUICIDAL ANYMORE AND WANTS TO BE DISCHARGED. DR.DELLAGROTTA STEVENS.
--- NOTE | 2021-02-14 10:07 | NUR ---
Patient given written and verbal discharge instructions. Patient verbalizes understanding of instructions. Patient is ambulatory with steady gait. Refuses offer of [facility] placement. Patient given list of available shelters in surrounding area.
[2021-02-14 10:08] VITALS: BP 128/68
== END 2021-02-14 10:22 | disposition home or self-care (01) ==
LOC: ER 01:58
DX: F32.9 Major depressive disorder, single episode, unspecified (principal); R45.851 Suicidal ideations; F20.9 Schizophrenia, unspecified; Z59.0 Homelessness; F17.210 Nicotine dependence, cigarettes, uncomplicated; Z20.822 Contact with and (suspected) exposure to COVID-19
CPT/HCPCS: 36415; 80048; 80076; 80299; 80307; 80320; 81001; 85025; 87426; 99285; 99406; C9803; G0480

== ENCOUNTER 2021-02-15 23:51 | Emergency (ER) | payer OTHER ==
[~2021-02-15] VITALS: Ht 190.5 cm; Wt 85.3 kg
--- NOTE | 2021-02-15 23:51 | NUR ---
MED CLEARANCE FOR VOL PSYCH ADMIT, SI "RUN INTO TRAFFIC", PT CALM AND COOPERATIVE, DENIES ANY SOB, SI PRECAUTION STARTED, VSS, NAD.
[2021-02-16 00:43] LABS: BILIRUBIN,URINE NEGATIVE (NEGATIVE); COLOR,URINE YELLOW (YELLOW); LEUKOCYTE ESTERASE ,URINE NEGATIVE (NEGATIVE); NITRITE, URINE NEGATIVE (NEGATIVE); PROTEIN,URINE NEGATIVE (NEGATIVE); UGLUCOSE NEGATIVE (NEGATIVE); UROBILINOGEN,URINE 0.2 EU/dL (0.2)
[2021-02-16 00:50] LABS: BASOPHILS % (AUTO) 0.9 % (0.0-2.0); EOSINOPHILS % (AUTO) 5.9 % (0.0-6.0); HEMATOCRIT 38 % (39-51); HEMOGLOBIN 12.7 g/dL (13.5-17.5); LYMPHOCYTES # (AUTO) 1.7 /CMM (0.8-4.8); MEAN CORPUSCULAR HGB CONC 34 g/dl (31.0-36.0); MEAN CORPUSCULAR VOLUME 93 fL (80-96); MONOCYTES # (AUTO) 0.3 /CMM (0.1-1.30); MONOCYTES % (AUTO) 6.3 % (2.0-12.0); NEUTROPHILS # (AUTO) 2.4 /CMM (1.8-8.9); NEUTROPHILS % (AUTO) 50.9 % (43.0-81.0); PLATELET COUNT (AUTO) 189 /CMM (150-450); RED BLOOD CELL COUNT(AUTO) 4.02 MIL/uL (4.5-6.0); WHITE BLOOD COUNT (AUTO) 4.7 K/uL (4.3-11.0)
[2021-02-16 01:40] LABS: CALCIUM, SERUM 9.2 mg/dL (8.5-10.1); CARBON DIOXIDE 31 mmol/L (21-32); CHLORIDE 106 mmol/L (98-107); CREATININE 1.2 mg/dL (0.6-1.3); GLUCOSE 62 mg/dL (74-106); POTASSIUM 4.2 mmol/L (3.5-5.1); SODIUM SERUM 141 mmol/L (136-145); UREA NITROGEN, BLOOD 18 mg/dL (7-18)
[2021-02-16 01:49] LABS: ALANINE AMINOTRANSFERASE 16 U/L (12-78); ALBUMIN 3.8 g/dL (3.4-5.0); ALCOHOL, BLOOD 5 mg/dL (0-0); ALKALINE PHOSPHATASE 65 U/L (46-116); ASPARTATE AMINOTRANSFERASE 30 U/L (15-37); BILIRUBIN,DIRECT 0.1 mg/dL (0.0-0.2); BILIRUBIN,TOTAL 0.3 mg/dL (0.2-1.0); TOTAL PROTEIN, SERUM 8.1 g/dL (6.4-8.2)
[2021-02-16 01:51] LABS: ACETAMINOPHEN < 2 ug/ml (10-30)
--- NOTE | 2021-02-16 03:00 | NUR ---
FACESHEET AND CLINICALS FAXED TO [facility].
--- NOTE | 2021-02-16 05:24 | NUR ---
PT ACCEPTED: [facility] [phone] EXT [phone]
--- NOTE | 2021-02-16 05:35 | NUR ---
[facility] CALLED FOR TRANSPORT. TRIP# [id number]
--- NOTE | 2021-02-16 05:44 | NUR ---
REPORT GIVEN TO KATIANA SMART FOR [facility]
--- NOTE | 2021-02-16 06:27 | NUR ---
[facility] eta [phone]
--- NOTE | 2021-02-16 07:50 | NUR ---
ASSESSED PT ON BED ASLEEP EASILY [place], NOT IN RESPIRATORY DISTRESS, V/S STABLE, KEPT RESTED AND COMFORTABLE. WILL CONTINUE TO MONITOR.
--- NOTE | 2021-02-16 08:44 | NUR ---
PROVIDED FOOD TRAY FOR BREAKFAST.
[2021-02-16 10:45] VITALS: BP 115/60
--- NOTE | 2021-02-16 10:46 | NUR ---
transported to [facility] via private ambulance in stable condition.
--- NOTE | 2021-02-16 10:48 | NUR ---
unable to depart from [facility]. pt departed from ED via private ambulance going to [facility].
== END 2021-02-16 10:48 ==
LOC: ER 23:53
DX: R45.851 Suicidal ideations (principal); F32.9 Major depressive disorder, single episode, unspecified; Z59.0 Homelessness; F20.9 Schizophrenia, unspecified; Z20.822 Contact with and (suspected) exposure to COVID-19; F17.200 Nicotine dependence, unspecified, uncomplicated
CPT/HCPCS: 36415; 80048; 80076; 80299; 80307; 80320; 81003; 85025; 87426; 99285; C9803; G0480

== ENCOUNTER 2021-03-09 00:24 | Emergency (ER) | payer OTHER | END 2021-03-09 03:29 | disposition left against medical advice (07) | LOC: ER 00:26 | DX: Z53.21 Procedure and treatment not carried out due to patient leaving prior to being seen by health care provider (principal) ==

== ENCOUNTER 2021-05-11 02:03 | Emergency (ER) | payer OTHER ==
--- NOTE | 2021-05-11 02:07 | NUR ---
CALLED TO TRIAGE, NO RESPONSE
--- NOTE | 2021-05-11 02:14 | NUR ---
CALLED FOR TRIAGE, NO ANSWER
--- NOTE | 2021-05-11 02:33 | NUR ---
CALLED TO TRIAGE, NO RESPONSE
== END 2021-05-11 02:39 | disposition left against medical advice (07) ==
LOC: ER 02:03
DX: Z53.21 Procedure and treatment not carried out due to patient leaving prior to being seen by health care provider (principal)

== ENCOUNTER 2021-08-14 23:16 | Emergency (ER) | payer OTHER ==
[~2021-08-14] VITALS: Ht 185.4 cm; Wt 79.4 kg
--- NOTE | 2021-08-15 00:20 | NUR ---
BIBSEIzaF C/O SI WITH PLAN TO CUT WRIST. -HI. REQUESTING VOL ADMISSION TO [facility]. PT ALERT AND ORIENTED X3. AMBULATORY WITH NON LABORED BREATHING ON A MONITOR
[2021-08-15 01:22] LABS: BILIRUBIN,URINE NEGATIVE (NEGATIVE); COLOR,URINE YELLOW (YELLOW); LEUKOCYTE ESTERASE ,URINE NEGATIVE (NEGATIVE); NITRITE, URINE NEGATIVE (NEGATIVE); PROTEIN,URINE NEGATIVE (NEGATIVE); UGLUCOSE NEGATIVE (NEGATIVE); UROBILINOGEN,URINE 0.2 EU/dL (0.2)
[2021-08-15 01:22] LABS: BASOPHILS # (AUTO) 0.1 K/uL (0.0-0.2); EOSINOPHILS % (AUTO) 6.8 % (0.0-6.0); HEMATOCRIT 40 % (39-51); HEMOGLOBIN 13.6 g/dL (13.5-17.5); LYMPHOCYTES # (AUTO) 2.3 K/uL (0.8-4.8); LYMPHOCYTES % (AUTO) 38.9 % (20.0-44.0); MEAN CORPUSCULAR HGB CONC 34 g/dl (31.0-36.0); MEAN CORPUSCULAR VOLUME 93 fL (80-96); MONOCYTES # (AUTO) 0.3 K/uL (0.1-1.30); MONOCYTES % (AUTO) 5.4 % (2.0-12.0); NEUTROPHILS # (AUTO) 2.9 K/uL (1.8-8.9); NEUTROPHILS % (AUTO) 47.9 % (43.0-81.0); PLATELET COUNT (AUTO) 175 K/uL (150-450); RED BLOOD CELL COUNT(AUTO) 4.33 MIL/uL (4.5-6.0)
[2021-08-15 01:46] LABS: SODIUM SERUM 138 mmol/L (136-145)
[2021-08-15 01:47] LABS: BILIRUBIN,DIRECT 0.1 mg/dL (0.0-0.2); BILIRUBIN,TOTAL 0.2 mg/dL (0.2-1.0); CALCIUM, SERUM 9.2 mg/dL (8.5-10.1); CARBON DIOXIDE 29 mmol/L (21-32); CHLORIDE 102 mmol/L (98-107); CREATININE 1.2 mg/dL (0.6-1.3); GLUCOSE 87 mg/dL (74-106); POTASSIUM 4.3 mmol/L (3.5-5.1); UREA NITROGEN, BLOOD 21 mg/dL (7-18)
[2021-08-15 01:48] LABS: ACETAMINOPHEN 0 ug/ml (10-30); ALANINE AMINOTRANSFERASE 15 U/L (12-78); ALBUMIN 4.4 g/dL (3.4-5.0); ALKALINE PHOSPHATASE 55 U/L (46-116); ASPARTATE AMINOTRANSFERASE 22 U/L (15-37); TOTAL PROTEIN, SERUM 8.4 g/dL (6.4-8.2)
[2021-08-15 01:57] LABS: ALCOHOL, BLOOD < 3 mg/dL (0-0)
--- NOTE | 2021-08-15 04:14 | NUR ---
FACESHEET AND CLINICALS FAXED TO [facility].
--- NOTE | 2021-08-15 05:00 | NUR ---
PATIENT RESTING COMFORTABLY NO COMPLAINTS
[2021-08-15 05:01] VITALS: BP 130/77
--- NOTE | 2021-08-15 07:24 | NUR ---
[facility] & ANIYAH CALL [phone] X [phone] FOR REPORT.
--- NOTE | 2021-08-15 07:27 | NUR ---
CALLED [facility] FOR TRANSPORT ETA 0800 PER ALEAH.
--- NOTE | 2021-08-15 08:05 | NUR ---
ambulance transport came but patient is no longer in the department
== END 2021-08-15 08:23 | disposition left against medical advice (07) ==
LOC: ER 23:18
DX: R45.851 Suicidal ideations (principal); Z20.822 Contact with and (suspected) exposure to COVID-19; Z59.00 Homelessness unspecified; F20.9 Schizophrenia, unspecified
CPT/HCPCS: 36415; 80048; 80076; 80143; 80307; 80320; 81003; 85025; 87426; 99285; C9803; G0480

== ENCOUNTER 2022-02-25 06:08 | Emergency (ER) | payer OTHER ==
[~2022-02-25] VITALS: Ht 185.4 cm; Wt 83.9 kg
--- NOTE | 2022-02-25 06:23 | NUR ---
TO ER BED 18. BIBS C/O SI WITH PLAN TO CUT SELF. V/S WITHIN NORMAL RANGE. CHANGED INTO GOWN. BELONGINGS OBTAINED AND SECURED. 1:1 SITTER. CONNECTED TO MONITOR. AWAITING MD CATES.
--- NOTE | 2022-02-25 06:32 | NUR ---
PT NOW DENIES SI AND HI . WOULD LIKE TO LEAVE EMERGENCY ROOM. LEFT WITHOUT BEING SEEN BY .
[2022-02-25 06:35] VITALS: BP 148/72
== END 2022-02-25 06:36 | disposition left against medical advice (07) ==
LOC: ER 06:16
DX: Z53.21 Procedure and treatment not carried out due to patient leaving prior to being seen by health care provider (principal)

== ENCOUNTER 2022-11-18 02:41 | Emergency (ER) | payer OTHER ==
[~2022-11-18] VITALS: Ht 188 cm; Wt 81.6 kg
--- NOTE | 2022-11-18 04:59 | NUR ---
BIBS TO ER BED 18. CAME IN FOR MEDICAL CLEARANCE FO [facility] PSYCH ADMISSION FOR FEELING SUICIDAL WITH PLAN TO OVERDOSE. DENIES HI. PT WAS GOWNED, BELONGINGS TAKEN AND PLACE IN LOCKER. VISUALLY INSPECTED AND WANDED BY SECURITY. URINE WAS COLLECTED WELL A COVID SWAB AND SENT TO LAB. WAS AT THE BEDSIDE FOR EVAL. ORDERS RECEIVED.
[2022-11-18 05:56] LABS: BILIRUBIN,URINE NEGATIVE (NEGATIVE); COLOR,URINE YELLOW (YELLOW); LEUKOCYTE ESTERASE ,URINE TRACE (NEGATIVE); NITRITE, URINE NEGATIVE (NEGATIVE); PH,URINE 6.5 (5.0-8.0); PROTEIN,URINE NEGATIVE (NEGATIVE); UGLUCOSE NEGATIVE (NEGATIVE)
[2022-11-18 06:26] LABS: BACTERIA,URINE Rare /HPF (None Seen); RBC,URINE 0-2 /HPF (0-2); SQUAMOUS EPITHELIAL CELL,UR Few /HPF (None Seen); WBC,URINE 0-2 /HPF (0-3)
[2022-11-18 06:27] LABS: BASOPHILS % (AUTO) 0.3 % (0.0-2.0); EOSINOPHILS % (AUTO) 3.7 % (0.0-6.0); HEMATOCRIT 41 % (39-51); HEMOGLOBIN 13.7 g/dL (13.5-17.5); LYMPHOCYTES # (AUTO) 1.3 K/uL (0.8-4.8); LYMPHOCYTES % (AUTO) 33.1 % (20.0-44.0); MEAN CORPUSCULAR HGB CONC 33 g/dl (31.0-36.0); MEAN CORPUSCULAR VOLUME 92 fL (80-96); MONOCYTES # (AUTO) 0.4 K/uL (0.1-1.30); MONOCYTES % (AUTO) 9.8 % (2.0-12.0); NEUTROPHILS # (AUTO) 2.1 K/uL (1.8-8.9); NEUTROPHILS % (AUTO) 53.1 % (43.0-81.0); PLATELET COUNT (AUTO) 188 K/uL (150-450); RED BLOOD CELL COUNT(AUTO) 4.44 MIL/uL (4.5-6.0)
[2022-11-18 06:39] LABS: ALANINE AMINOTRANSFERASE 14 U/L (12-78); ALBUMIN 3.5 g/dL (3.4-5.0); ALKALINE PHOSPHATASE 62 U/L (46-116); ASPARTATE AMINOTRANSFERASE 32 U/L (15-37); CARBON DIOXIDE 25 mmol/L (21-32); CHLORIDE 103 mmol/L (98-107); CREATININE 1.2 mg/dL (0.6-1.3); GLUCOSE 89 mg/dL (74-106); POTASSIUM 4.7 mmol/L (3.5-5.1); SODIUM SERUM 134 mmol/L (136-145); TOTAL PROTEIN, SERUM 7.5 g/dL (6.4-8.2); UREA NITROGEN, BLOOD 17 mg/dL (7-18)
[2022-11-18 06:53] LABS: ACETAMINOPHEN < 10 ug/ml (10-30); ALCOHOL, BLOOD < 3 mg/dL (0-0)
--- NOTE | 2022-11-18 08:13 | NUR ---
pt doesnt want to be admitted at the psych facility , requested to be discharge from the hospital
[2022-11-18 08:27] LABS: BILIRUBIN,DIRECT 0.1 mg/dL (0.0-0.2); BILIRUBIN,TOTAL 0.2 mg/dL (0.2-1.0)
[2022-11-18 08:55] VITALS: BP 127/70
--- NOTE | 2022-11-18 08:56 | NUR ---
Pt states "I want to go to [place] [facility] they allow you to smoke there. If I cant I would rather leave. I dont want to go to [place]. If I wanted to go to [place] I could have self admitted." Dr Pham made aware- reevaluated pt and discharged. ACI given. NO acute distress. VSS
== END 2022-11-18 08:55 | disposition home or self-care (01) ==
LOC: ER 02:42
DX: R45.851 Suicidal ideations (principal); F20.9 Schizophrenia, unspecified; U07.1 COVID-19
CPT/HCPCS: 99285; 85025; 80048; 80076; 81001; 36415; 87426; 80143; 80320; 80307; C9803; G0480

== ENCOUNTER 2022-11-30 23:14 | Emergency (ER) | payer OTHER ==
[~2022-11-30] VITALS: Ht 182.9 cm; Wt 86.2 kg
[2022-12-01 02:30] VITALS: BP 134/87
[2022-12-01] MEDS ORDERED: IBUPROFEN 400 MG TABLET PO ONE (02:30)
--- NOTE | 2022-12-01 02:33 | NUR ---
SAMARIA C/O LEFT SELF PAIN X4 DAYS - TRAUMA. AMBULATORY. PT A/OX4. TOLERATING R/A WELL WITH NO RESP DISTRESS. SAFETY MEASURES IN PLACE.
[2022-12-01] MEDS ORDERED: IBUPROFEN 400 MG TABLET ONE (02:36)
--- NOTE | 2022-12-01 03:20 | NUR ---
STRAW HAT BRUSHER AT PT'S BEDSIDE
== END 2022-12-01 03:36 | disposition home or self-care (01) ==
LOC: ER 23:17
DX: M79.662 Pain in left lower leg (principal); F41.9 Anxiety disorder, unspecified; F32.A Depression, unspecified; F17.200 Nicotine dependence, unspecified, uncomplicated; Z60.2 Problems related to living alone
CPT/HCPCS: 73590-TC

== ENCOUNTER 2022-12-19 01:32 | Emergency (ER) | payer MEDICAID, OTHER ==
[~2022-12-19] VITALS: Ht 188 cm; Wt 86.2 kg
--- NOTE | 2022-12-19 01:50 | NUR ---
Ashley from street c/o +SI "i want to jump in front of a running train", denies HI. Requesting voluntary psych admit. Pt A/Ox4. Tolerating R/A well with no Resp distress. Pt changed in gown, belongings collected and placed in locker. Pt wanded by security. Safety measures in place.
--- NOTE | 2022-12-19 01:56 | NUR ---
URINE COLLECTED AND SENT TO LAB
--- NOTE | 2022-12-19 01:56 | NUR ---
COVID ANTIGEN SWAB COLLECTED AND SENT TO LAB
[2022-12-19 02:37] LABS: BILIRUBIN,URINE NEGATIVE (NEGATIVE); COLOR,URINE YELLOW (YELLOW); LEUKOCYTE ESTERASE ,URINE NEGATIVE (NEGATIVE); NITRITE, URINE NEGATIVE (NEGATIVE); PROTEIN,URINE NEGATIVE (NEGATIVE); UGLUCOSE NEGATIVE (NEGATIVE); UROBILINOGEN,URINE 0.2 EU/dL (0.2)
[2022-12-19 02:39] LABS: CARBON DIOXIDE 29 mmol/L (21-32); CHLORIDE 107 mmol/L (98-107); CREATININE 1.2 mg/dL (0.6-1.3); GLUCOSE 106 mg/dL (74-106); POTASSIUM 3.7 mmol/L (3.5-5.1); SODIUM SERUM 142 mmol/L (136-145); UREA NITROGEN, BLOOD 9 mg/dL (7-18)
[2022-12-19 02:40] LABS: BASOPHILS % (AUTO) 0.6 % (0.0-2.0); HEMATOCRIT 38 % (39-51); HEMOGLOBIN 12.9 g/dL (13.5-17.5); LYMPHOCYTES # (AUTO) 1.8 K/uL (0.8-4.8); LYMPHOCYTES % (AUTO) 33.5 % (20.0-44.0); MEAN CORPUSCULAR HGB CONC 34 g/dl (31.0-36.0); MEAN CORPUSCULAR VOLUME 91 fL (80-96); MONOCYTES # (AUTO) 0.5 K/uL (0.1-1.30); MONOCYTES % (AUTO) 9.3 % (2.0-12.0); NEUTROPHILS # (AUTO) 2.9 K/uL (1.8-8.9); NEUTROPHILS % (AUTO) 53.6 % (43.0-81.0); PLATELET COUNT (AUTO) 193 K/uL (150-450); WHITE BLOOD COUNT (AUTO) 5.3 K/uL (4.3-11.0)
[2022-12-19 02:44] LABS: ALANINE AMINOTRANSFERASE 18 U/L (12-78); ALBUMIN 3.5 g/dL (3.4-5.0); ALKALINE PHOSPHATASE 68 U/L (46-116); ASPARTATE AMINOTRANSFERASE 31 U/L (15-37); BILIRUBIN,DIRECT 0.1 mg/dL (0.0-0.2); BILIRUBIN,TOTAL 0.2 mg/dL (0.2-1.0); TOTAL PROTEIN, SERUM 7.4 g/dL (6.4-8.2)
[2022-12-19 02:46] LABS: ALCOHOL, BLOOD < 3 mg/dL (0-0)
--- NOTE | 2022-12-19 05:00 | NUR ---
CLINICALS FAX TO [facility]
--- NOTE | 2022-12-19 08:30 | NUR ---
Pt updated with plan of care. States understanding. Breakfast given - ate 100%
--- NOTE | 2022-12-19 09:27 | NUR ---
facesheet, clinicals re faxed to [facility] intake.
--- NOTE | 2022-12-19 10:00 | NUR ---
[facility] ACC[facility] UNDER DR. LEE. PLEASE CALL [phone] FOR REPORT. WILL INFORM ABOUT TRANSPORTATION.
--- NOTE | 2022-12-19 11:01 | NUR ---
picker feeder by [facility]. stable condition.
[2022-12-19 11:02] VITALS: BP 138/84
[2022-12-19 13:25] LABS: BASOPHILS % (MANUAL) 0 % (0.0-2.0); EOSINOPHILS % (MANUAL) 2 % (0-4); LYMPHOCYTES % (MANUAL) 29 % (16-48); MONOCYTES % (MANUAL) 5 % (0-11.0); NEUTROPHILS % (MANUAL) 64 (42-76)
== END 2022-12-19 11:04 | disposition home or self-care (01) ==
LOC: ER 01:43
DX: R45.851 Suicidal ideations (principal); F32.A Depression, unspecified; F41.9 Anxiety disorder, unspecified; F20.9 Schizophrenia, unspecified; F17.200 Nicotine dependence, unspecified, uncomplicated; Z20.822 Contact with and (suspected) exposure to COVID-19; Z60.2 Problems related to living alone
CPT/HCPCS: 99285; 85025; 80048; 80076; 85007; 81003; 36415; 87426; 80143; 80320; 80307; C9803; G0480